=== PATIENT | male | born 2000 | race Caucasian/White ===

== ENCOUNTER 2019-01-21 13:33 | Emergency (ER) | payer BC ==
--- NOTE | 2019-01-21 14:25 | EDM.PDOCBH ---
ED HPI GENERAL MEDICAL PROBLEM - General Chief Complaint: Drug or Alcohol Abuse Stated Complaint: NOSE BLEED Time Seen by Provider: 01/21/19 13:44 Source of Information: Reports: Patient, RN Notes Reviewed History Limitations: Reports: No Limitations - History of Present Illness INITIAL COMMENTS - FREE TEXT/NARRATIVE: The patient is brought from [facility] by EMS. The patient states that he has been residing at [facility] here in [place] for about 6 weeks, receiving treatment for drug and alcohol addiction, after moving from [place]. The patient states that he was huffing from a duster aerosol can around 13:00 this afternoon. He states that he hides the cans under the dumpster behind [facility]. He states that he passed out, falling, and cutting his lower lip. He also struck his nose and suffered some brief epistaxis, which has since resolved on its own. The patient states that he has tried "everything besides heroin". He denies prior IV drug use. He states that he last smoked methamphetamine about 2 weeks ago, but that he huffs approximately once a month. The patient states that he has been to inpatient drug treatment once, for 4-5 months, in [place]. He states that he remained clean for about one month. He attends outpatient drug treatment, most recently yesterday. The patient states that he has a history of anxiety depression, currently untreated, however, he denies feeling suicidal, denies any prior suicide attempt , and denies ever being psychiatrically hospitalized. The patient does not have a PCP. - Related Data Allergies Allergy/AdvReac Type Severity Reaction Status Date / Time No Known Allergies Allergy Verified 01/21/19 13:44 Home Meds: Home Meds Doxycycline [Vibramycin] 100 mg PO DAILY 01/21/19 [History] Past Medical History Psychiatric History: Reports: Addiction, Anxiety (untreated), Depression ( untreated) Dermatologic History: Reports: Other (See Below) (Acne) - Past Surgical History HEENT Surgical History: Reports: Oral Surgery (wisdom teeth extraction) Social & Family History - Tobacco Use Smoking Status *Q: Current Every Day Smoker Years of Tobacco use: 3 Packs/Tins Daily: 0.3 - Caffeine Use Caffeine Use: Reports: Coffee, Energy Drinks, Soda, Tea - Alcohol Use Alcohol Use History: Yes Alcohol Use Frequency: Binges (fifth of vodka about once a week) - Recreational Drug Use Recreational Drug Type: Reports: Cocaine, Dilaudid, Fentanyl, LSD (Acid), Marijuana/Hashish, Methamphetamine (last snorted late December 2018), Opium, Vicodin, Xanax, Other (see below) (Huffs inhalents about once a month - last = ) - Living Situation & Occupation Living situation: Reports: Single, Other ([facility], otherwise homeless) Occupation: Unemployed ED ROS GENERAL - Review of Systems Review Of Systems: ROS reveals no pertinent complaints other than HPI. ED EXAM, BEHAVIORAL HEALTH - Physical Exam Exam: See Below Exam Limited By: No Limitations General Appearance: Alert, WD/WN, No Apparent Distress Eye Exam: Bilateral Eye: EOMI, Normal Inspection Ears: Normal External Exam, Normal Canal, Hearing Grossly Normal, Normal TMs Nose: Normal Inspection, Normal Mucosa, Other (There is a very small amount of some dried blood in the left nostril, but the source is unclear. No site of epistaxis seen.). No: Nasal Tenderness, Nasal Deformity, Nasal Swelling Throat/Mouth: Normal Inspection, Normal Teeth, Normal Gums, Normal Oropharynx, Normal Voice, No Airway Compromise, Other (Small macerated laceration to the inner central lower lip, consistent with puncture by a tooth) Head: Atraumatic, Normocephalic Neck: Normal Inspection, Supple, Non-Tender, Full Range of Motion Respiratory/Chest: No Respiratory Distress, Lungs Clear, Normal Breath Sounds, No Accessory Muscle Use Cardiovascular: Normal Peripheral Pulses, Regular Rate, Rhythm, No Edema, No Gallop, No JVD, No Murmur, No Rub GI/Abdominal: Normal Bowel Sounds, Soft, Non-Tender, No Organomegaly, No Distention, No Abnormal Bruit, No Mass (Male) Exam: Deferred Rectal (Males) Exam: Deferred Back Exam: Normal Inspection, Full Range of Motion, NT Extremities: Normal Inspection, Normal Range of Motion, No Pedal Edema, Normal Capillary Refill Neurological: Alert, Normal Cognition, No Motor/Sensory Deficits, Oriented x 3 Psychiatric: Normal Affect. No: Non-Communicative, Poor Eye Contact, Uncooperative, Withdrawn, Suicidal Thoughts Skin Exam: Warm, Dry, Intact, Normal color, No rash COURSE, BEHAVIORAL HEALTH COMP - Course Vital Signs: Last Vital Signs Temp 36.8 C 01/21/19 14:20 Pulse 82 01/21/19 14:20 Resp 18 01/21/19 14:20 BP 137/77 01/21/19 14:20 Pulse Ox 97 01/21/19 14:20 Medical Clearance: 01/21/19 14:25 The patient has a small macerated laceration to his inner lower lip. I offered to place a single suture across it - it's on the borderline whether or not it really needs to be sutured, but the patient declined, anyway. On examination of his nose, he has a small amount of some dried blood in his left nostril, but I don't see any source of bleeding. No medical treatment is required. [facility] would like us to order a medical clearance workup, in preparation for involuntary commitment to the [facility] in [place], the rationale being that they feel that the patient is suicidal, and that they would like him to receive drug treatment. The patient, however, tells me that he is not suicidal, that he has never attempted suicide, and that he has never been psychiatrically hospitalized. At this time, I don't believe that the patient is actively suicidal, and I do find that he is decisional. I therefore do not have the authority to force a medical clearance evaluation on him, or keep him against his will. Further, no medical evaluation or treatment is needed for inhaling a propellant in the absence of acute complications, such as altered mental status or dysrhythmias. The patient would like to be discharged. We are told that [facility] does not want him back. I offered to have him return to the ED if he changes his mind about psychiatric evaluation. Departure - Departure Time of Disposition: 14:33 Disposition: Home, Self-Care 01 Condition: Good Clinical Impression: Inhalant abuse, Laceration of lower lip - Discharge Information *PRESCRIPTION DRUG MONITORING PROGRAM REVIEWED*: Not Applicable *COPY OF PRESCRIPTION DRUG MONITORING REPORT IN PATIENT JEANNA: Not Applicable Instructions: Inhalant Use Disorder Referrals: PCP,None [Primary Care Provider] - Additional Instructions: You were seen in the emergency room after passing out from huffing, cutting your inner lower lip. The cut on your lip could use a single suture, however, you declined treatment. [facility] requested medical clearance in preparation for admission to the [facility] in [place], however, you declined evaluation or admission. If you change your mind and would like to be evaluated for psychiatric hospitalization, please do not hesitate to return to the ER.
== END 2019-01-21 14:42 | disposition home or self-care (01) ==
LOC: JD.ED 13:33
DX: S01.511A Laceration without foreign body of lip, initial encounter (principal); F18.10 Inhalant abuse, uncomplicated; F17.210 Nicotine dependence, cigarettes, uncomplicated; Z79.899 Other long term (current) drug therapy; W19.XXXA Unspecified fall, initial encounter
CPT/HCPCS: 99282; 99284

== ENCOUNTER 2021-05-24 21:38 | Emergency (ER) | payer SELFPAY ==
[2021-05-24] MEDS ORDERED: Naloxone 2 MG/2 ML Syringe ONE (21:42)
[2021-05-24] MEDS ORDERED: Naloxone 0.4 MG/ML SDV IVPUSH ONE (21:50)
--- NOTE | 2021-05-24 21:55 | EDM.PDOC ---
ED HPI GENERAL MEDICAL PROBLEM - General Stated Complaint: [facility] Time Seen by Provider: 05/24/21 21:38 Source of Information: Reports: EMS History Limitations: Reports: Altered Mental Status - History of Present Illness INITIAL COMMENTS - FREE TEXT/NARRATIVE: A medical alert was called for this patient. Mr. Jimenes is a 21-year-old man who is now brought to the ED by EMS after his girlfriend found him unresponsive. When EMS arrived, they found him to be cyanotic, with a respiratory rate under 6. The patient's girlfriend reported that the patient is an alcoholic and that he was on alprazolam. EMS initiated ventilations via BVM. An Accu-Chek was 384. They administered Narcan 0.4 mg IVP x 2, and the patient began breathing, although he remained unresponsive. They performed a jaw thrust and switched the patient to a nonrebreather mask, which he remained on until arrival to the ED. Here in the ED, the patient's initial BP was found to be elevated at 159/134, with tachycardia of 108 bpm and slight tachypnea of 22 rpm. He is afebrile, saturating 100% on a nonrebreather mask. He is unresponsive. Due to the patient's altered mental status, recent review of systems is not available. PMHx/PSHx/SocHx provided by his mother. The patient does not have a PCP. He has not received a COVID vaccination. - Related Data Allergies Allergy/AdvReac Type Severity Reaction Status Date / Time No Known Allergies Allergy Verified 05/24/21 22:42 Home Meds: Home Meds Naloxone HCl [Narcan] 4 mg NS ASDIRECTED PRN #1 device 05/25/21 [Rx] Past Medical History Respiratory History: Reports: Asthma (untreated) Psychiatric History: Reports: Addiction (alcohol, inhalants), Anxiety (untreated), Depression (untreated) Dermatologic History: Reports: Eczema - Past Surgical History HEENT Surgical History: Reports: Oral Surgery (dental extractions) Social & Family History - Tobacco Use Tobacco Use Within Last Twelve Months: Vaping (Nicotine + THC) - Caffeine Use Caffeine Use: Reports: Coffee, Energy Drinks, Soda, Tea - Alcohol Use Alcohol Use History: Yes Alcohol Use Frequency: Binges - Recreational Drug Use Recreational Drug Use: Yes Drug Use in Last 12 Months: Yes Recreational Drug Type: Reports: Benzodiazepines, Inhalants (Glues, Solvents, Aerosols), Other (see below) (Opioids) - Living Situation & Occupation Living situation: Reports: Single, with Significant Other (Girlfriend) Occupation: Employed ([employer]) ED ROS GENERAL - Review of Systems Review Of Systems: Comprehensive ROS is negative, except as noted in HPI. ED EXAM, GENERAL - Physical Exam Exam: See Below Exam Limited By: Other (Obtunded) General Appearance: WD/WN, Obtunded Eye Exam: Bilateral Eye: Other (Pupils 3 mm, sluggish) Ears: Normal External Exam Nose: Normal Inspection Throat/Mouth: Normal Inspection, Normal Lips, No Airway Compromise Head: Atraumatic, Normocephalic Neck: Normal Inspection Respiratory/Chest: No Respiratory Distress, Normal Breath Sounds, No Accessory Muscle Use, Rhonchi (on left) Cardiovascular: Normal Peripheral Pulses, Regular Rate, Rhythm, No Edema, No Gallop, No JVD, No Murmur, No Rub Peripheral Pulses: 3+: Radial (L), Radial (R) GI/Abdominal: Normal Bowel Sounds, Soft, No Organomegaly, No Distention, No Abnormal Bruit, No Mass Extremities: Normal Inspection, Normal Range of Motion, No Pedal Edema, Normal Capillary Refill Neurological: Other (Moves all 4 extremities spontaneously) Skin Exam: Warm, Dry, Intact, Normal Color, No Rash #1 Interpretation EKG Date: 05/24/21 Time: 21:59 Rhythm: Other (Sinus tachycardia) Rate (Beats/Min): 104 [place]: Normal P-Wave: Present QRS: Normal ST-T: Normal QT: Normal Comparison: NA - No Prior EKG Course - Vital Signs Last Recorded V/S: Last Vital Signs Temp 36.2 C 05/24/21 22:37 Pulse 90 05/25/21 01:05 Resp 16 05/25/21 01:05 BP 106/85 05/25/21 01:05 Pulse Ox 97 05/25/21 01:05 - Orders/Labs/Meds Labs: Laboratory Tests 05/24/21 05/24/21 05/24/21 Range/Units 21:50 21:51 21:51 WBC 8.45 (4.23-9.07) K/mm3 RBC 4.92 (4.63-6.08) M/mm3 Hgb 14.6 (13.7-17.5) gm/dl Hct 44.6 (40.1-51.0) % MCV 90.7 (79.0-92.2) fl MCH 29.7 (25.7-32.2) pg MCHC 32.7 (32.2-35.5) g/dl RDW Std Deviation 46.6 H (35.1-43.9) fL Plt Count 256 (163-337) K/mm3 MPV 9.4 (9.4-12.3) fl Neutrophils % (Manual) 72 H (40-60) % Band Neutrophils % 1 (0-10) % Lymphocytes % (Manual) 21 (20-40) % Atypical Lymphs % 0 % Monocytes % (Manual) 3 (2-10) % Eosinophils % (Manual) 2 (0.8-7.0) % Basophils % (Manual) 1 (0.2-1.2) Platelet Estimate Adequate RBC Morph Comment Normal Sodium 139 (136-145) mEq/L Potassium 3.9 (3.5-5.1) mEq/L Chloride 103 (98-107) mEq/L Carbon Dioxide 21 (21-32) mEq/L Anion Gap 18.9 H (5-15) BUN 8 (7-18) mg/dL Creatinine 1.5 H (0.7-1.3) mg/dL Est Cr Clr Drug Dosing TNP Estimated GFR (MDRD) 58 (>60) mL/min BUN/Creatinine Ratio 5.3 L (14-18) Glucose 346 H (70-99) mg/dL Lactic Acid (0.4-2.0) mmol/L Calcium 7.4 L (8.5-10.1) mg/dL Magnesium 2.7 H (1.8-2.4) mg/dL Total Bilirubin 0.2 (0.2-1.0) mg/dL AST 40 H (15-37) U/L ALT 33 (16-63) U/L Alkaline Phosphatase 68 (46-116) U/L Troponin I < 0.017 (0.00-0.056) ng/mL C-Reactive Protein <0.2 (<1.0) mg/dL Total Protein 6.8 (6.4-8.2) g/dl Albumin 3.8 (3.4-5.0) g/dl Globulin 3.0 gm/dL Albumin/Globulin Ratio 1.3 (1-2) Salicylates (2.8-20) mg/dL Urine Opiates Screen Negative (ZNLHBP=145) Ur Buprenorphine Scrn Negative (CUTOFF=10) Ur Oxycodone Screen Negative (TCJ5FT=571) Urine Methadone Screen Negative (MXY8NQ=861) Ur Propoxyphene Screen Negative (PBHXTW=507) Acetaminophen 0 L (10-30) ug/mL Ur Barbiturates Screen Negative (KCHIXQ=242) Ur Tricyclics Screen Negative (ZWZXRZ=394) Ur Phencyclidine Scrn Negative (CUTOFF=25) Ur Amphetamine Screen Negative (EAKDEN=757) U Methamphetamines Scrn Negative (TCIWBO=687) U Benzodiazepines Scrn Presumptive positive H (ZVZNJE=926) U Cocaine Metab Screen Negative (RFMDNG=198) U Marijuana (THC) Screen Presumptive positive H (CUTOFF=50) Ethyl Alcohol 0.19 (0.00) gm% 05/24/21 05/24/21 Range/Units 21:51 21:51 WBC (4.23-9.07) K/mm3 RBC (4.63-6.08) M/mm3 Hgb (13.7-17.5) gm/dl Hct (40.1-51.0) % MCV (79.0-92.2) fl MCH (25.7-32.2) pg MCHC (32.2-35.5) g/dl RDW Std Deviation (35.1-43.9) fL Plt Count (163-337) K/mm3 MPV (9.4-12.3) fl Neutrophils % (Manual) (40-60) % Band Neutrophils % (0-10) % Lymphocytes % (Manual) (20-40) % Atypical Lymphs % % Monocytes % (Manual) (2-10) % Eosinophils % (Manual) (0.8-7.0) % Basophils % (Manual) (0.2-1.2) Platelet Estimate RBC Morph Comment Sodium (136-145) mEq/L Potassium (3.5-5.1) mEq/L Chloride (98-107) mEq/L Carbon Dioxide (21-32) mEq/L Anion Gap (5-15) BUN (7-18) mg/dL Creatinine (0.7-1.3) mg/dL Est Cr Clr Drug Dosing Estimated GFR (MDRD) (>60) mL/min BUN/Creatinine Ratio (14-18) Glucose (70-99) mg/dL Lactic Acid 6.1 H* (0.4-2.0) mmol/L Calcium (8.5-10.1) mg/dL Magnesium (1.8-2.4) mg/dL Total Bilirubin (0.2-1.0) mg/dL AST (15-37) U/L ALT (16-63) U/L Alkaline Phosphatase (46-116) U/L Troponin I (0.00-0.056) ng/mL C-Reactive Protein (<1.0) mg/dL Total Protein (6.4-8.2) g/dl Albumin (3.4-5.0) g/dl Globulin gm/dL Albumin/Globulin Ratio (1-2) Salicylates 0.9 L (2.8-20) mg/dL Urine Opiates Screen (LLVXEK=068) Ur Buprenorphine Scrn (CUTOFF=10) Ur Oxycodone Screen (DCP6GU=793) Urine Methadone Screen (BLI5VF=830) Ur Propoxyphene Screen (TLTJBX=735) Acetaminophen (10-30) ug/mL Ur Barbiturates Screen (KXHXAB=333) Ur Tricyclics Screen (QFSUVG=917) Ur Phencyclidine Scrn (CUTOFF=25) Ur Amphetamine Screen (DVLNVM=018) U Methamphetamines Scrn (JMVLDI=447) U Benzodiazepines Scrn (VMQUJU=131) U Cocaine Metab Screen (IBGDNW=030) U Marijuana (THC) Screen (CUTOFF=50) Ethyl Alcohol (0.00) gm% Meds: Medications Discontinued Medications Generic Name Dose Route Start Last Admin Trade Name Freq PRN Reason Stop Dose Admin Sodium Chloride 1,000 mls @ 150 mls/hr 05/24/21 22:00 05/24/21 22:23 Normal Saline IV 150 mls/hr ASDIRECTED CLIFTON Administration Naloxone HCl 0.4 mg 05/24/21 21:50 05/24/21 21:43 Naloxone 0.4 Mg/Ml Sdv IVPUSH 05/24/21 21:51 0.4 mg ONETIME ONE Administration Naloxone HCl Confirm 05/24/21 21:42 Naloxone 2 Mg/2 Ml Syringe Administered 05/24/21 21:43 Dose 2 mg .ROUTE .STK-MED ONE Ondansetron HCl 4 mg 05/25/21 01:39 05/25/21 01:45 Ondansetron 4 Mg/2 Ml Sdv IVPUSH 05/25/21 01:40 4 mg ONETIME ONE Administration - Re-Assessments/Exams Free Text/Narrative Re-Assessment/Exam: 05/24/21 21:52 With the patient remaining unresponsive, I ordered an additional 0.4 mg of Narcan IVP. I placed a 30 Czech right nasal trumpet. He has rhonchi on the left, concerning for aspiration. His physical exam is otherwise unremarkable. A few minutes after the Narcan was given, the patient is starting to stir. I have ordered a work-up that includes numerous blood tests, an ABG, a swab for the SARS-CoV-2 virus, a urine drug screen, a portable chest x-ray, and an ECG. He will be given IV fluid. 05/24/21 21:56 The patient is now awake, but confused. The respiratory therapist left the nasal trumpet in place, but switched him to O2 per nasal cannula. 05/24/21 22:04 The patient is now awake and talking. The RT will remove the nasal trumpet. 05/24/21 22:11 The patient tells me that he had "a little bit of alcohol", but is otherwise somewhat hostile and reluctant to answer questions. 05/24/21 22:28 I had a long talk with the patient's mother. She tells me that the patient has a history of abusing inhalants and binge alcoholism, but she is unaware of prior abuse of benzodiazepines or opioids. She states that he was seen at the [place] walk-in [facility] not too long ago, for eczema, but was prescribed some Xanax. He finished the Xanax, then got a refill today of 10 pills, which he apparently took all of, along with some alcohol. His girlfriend then found him unresponsive around 21:00. The patient's mother stated that the patient has been to inpatient treatment 3 times, most recently about 2 years ago. He has not attended outpatient treatment. 05/24/21 23:28 Portable chest radiograph appears to be grossly normal. The cardiac silhouette is within normal limits. No pulmonary vascular congestion. No pleural effusions seen on this AP view. No focal infiltrate. No pneumothorax. Formal read per the Radiologist pending. 05/25/21 01:39 I went and evaluated the patient. He is a little groggy, but able to answer questions. He initially stated that he took no more than 1 mg of Xanax, but acknowledged that he was prescribed 10 x 0.25 mg tablets, and that none are remaining, and his girlfriend noted in agreement that he had taken all of them. He also acknowledged 2 tablets of oxycodone 30 mg that he purchased on the street. The patient then began vomiting. I have ordered some IV Zofran. 05/25/21 03:46 The patient is feeling much better, and looks better, as well. He is anxious to go home. I strongly encouraged him to follow-up with [facility]. I will submit a prescription for Narcan nasal spray, for the patient's girlfriend to keep in her purse. With respect to his hyperglycemia, the patient states that he has never been told that before. He likely has prediabetes. I will refer him to the clinic to establish a PCP for further evaluation. Departure - Departure Time of Disposition: 03:46 Disposition: Home, Self-Care 01 Condition: Good Clinical Impression: Opiate overdose, Mild alprazolam abuse, Alcohol dependence, binge pattern, Alcohol intoxication, Hyperglycemia - Discharge Information *PRESCRIPTION DRUG MONITORING PROGRAM REVIEWED*: No *COPY OF PRESCRIPTION DRUG MONITORING REPORT IN PATIENT JEANNA: No Prescriptions: Naloxone HCl [Narcan] 4 mg NS ASDIRECTED PRN #1 device PRN Reason: Oversedation Instructions: Opioid Overdose Referrals: PCP,None [Primary Care Provider] - Mary Ann Moreno NP [Nurse Practitioner] - Forms: ED Department Discharge Additional Instructions: You were seen in the emergency room after your girlfriend found you to be unresponsive, barely breathing, and turning blue. Your symptoms substantially improved after you were given Narcan = an anti- opiate medicine, confirming that you were suffering an opiate overdose. You were given additional Narcan in the ER. Work-up in the ER included numerous blood tests, a urine drug screen, a chest x- ray, and an ECG. Your work-up found your blood sugar to be significantly elevated at 346. Since you have no history of diabetes, this indicates that you have prediabetes. Your alcohol level was found to be significantly elevated at 0.19. For reference, that is over 2 times the upper legal limit for driving. A prescription for Narcan nasal spray has been submitted to the [facility], located just south and across the [address] from [facility]. The pharmacy will be open between noon and 4:00 today. Your girlfriend should keep this in her purse and use it if she ever finds you unresponsive again. We strongly recommended that you follow-up at [facility] to get the help that you need. Please follow-up with Mary Ann Moreno NP, or one of the other providers in the clinic, for further evaluation of your high blood sugar. If any other problems, please do not hesitate to return to the ER.
[2021-05-24] MEDS ORDERED: Sodium Chloride 0.9% 1,000 ML IV SCH (22:00)
[2021-05-24 22:25] LABS: ACETAMINOPHEN 0 ug/mL (10-30)
[2021-05-25] MEDS ORDERED: Ondansetron 4 MG/2 ML SDV IVPUSH ONE (01:39)
--- NOTE | 2021-05-25 07:29 | CR ---
Chest: Portable view of the chest was obtained. Comparison: No prior chest imaging is available. Heart size and mediastinum are normal. Lungs are clear with no acute parenchymal change. Bony structures show nothing acute. Impression: 1. Nothing acute is seen on portable chest x-ray. Diagnostic code #1
== END 2021-05-25 04:28 | disposition home or self-care (01) ==
LOC: JD.ED 21:38
DX: T40.601A Poisoning by unspecified narcotics, accidental (unintentional), initial encounter (principal); F19.10 Other psychoactive substance abuse, uncomplicated; F10.229 Alcohol dependence with intoxication, unspecified; R73.9 Hyperglycemia, unspecified; J45.909 Unspecified asthma, uncomplicated; F17.290 Nicotine dependence, other tobacco product, uncomplicated; R00.0 Tachycardia, unspecified
CPT/HCPCS: 36415; 71045; 80053; 80143; 80179; 80306; 80307; 83605; 83735; 84484; 85007; 85027; 86140; 93005; 96374; 96375; 99285; J2310; J2405; J7030; 93010; 99284

== ENCOUNTER 2021-11-06 21:21 | Emergency (ER) | payer OTHER | END 2021-11-07 04:20 | disposition home or self-care (01) | LOC: JD.ED 21:21 | DX: F10.129 Alcohol abuse with intoxication, unspecified (principal) | CPT/HCPCS: 82947; 99284 ==

== ENCOUNTER 2021-11-15 23:14 | Emergency (ER) | payer OTHER ==
[2021-11-15] MEDS ORDERED: Ondansetron 4 MG/2 ML SDV IVPUSH ONE (23:27)
[2021-11-15] MEDS ORDERED: Lactated Ringers 1,000 ML IV ONE (23:30)
== END 2021-11-16 01:10 | disposition home or self-care (01) ==
LOC: JD.ED 23:14
DX: T40.2X1A Poisoning by other opioids, accidental (unintentional), initial encounter (principal); F10.129 Alcohol abuse with intoxication, unspecified; Z72.0 Tobacco use
CPT/HCPCS: 96374; 99284; J2405; J7120

== ENCOUNTER 2021-11-21 19:36 | Emergency (ER) | payer OTHER ==
[2021-11-21] MEDS ORDERED: Sodium Chloride 0.9% 1,000 ML IV ONE (20:26)
[2021-11-21 20:57] LABS: ACETAMINOPHEN 0 ug/mL (10-30)
[2021-11-22] MEDS ORDERED: Potassium Chloride 20 MEQ Tab.ER PO ONE (02:17)
== END 2021-11-22 02:24 | disposition home or self-care (01) ==
LOC: JD.ED 19:36
DX: F10.220 Alcohol dependence with intoxication, uncomplicated (principal); E87.6 Hypokalemia; Y90.5 Blood alcohol level of 100-119 mg/100 ml
CPT/HCPCS: 36415; 80053; 80143; 80179; 80306; 80307; 81001; 83735; 85025; 93005; 99284; A9270; J7030; 93010; 99285